=== PATIENT | female | born 1980 | race Caucasian/White ===

== ENCOUNTER 2017-02-03 18:34 | Emergency (ER) | payer MEDICAID ==
[2017-02-03 18:44] VITALS: BP 128/79
[2017-02-03] MEDS ORDERED: Acetaminophen/HYDROcodone 325-5 MG Tab PO ONE ×2 (19:19→19:20)
--- NOTE | 2017-02-03 19:28 | EDM.PDOC ---
ED HPI ENT - General Chief Complaint: ENT Problem Stated Complaint: tooth ache Time Seen by Provider: 02/03/17 19:05 Source of Information: Reports: Patient History Limitations: Reports: No limitations - History of Present Illness INITIAL COMMENTS - FREE TEXT/NARRATIVE: The patient presents with dental pain of right 1st maxillary bicuspid that has been ongoing for the past several day and increased significantly today. She reports she tried to go to the dentist today but they were closed. She states she has had caries of that tooth and others for some time that she knows need to be addressed. She denies other symptoms or complaints. - Related Data Allergies/ADRs: Allergies Allergy/AdvReac Type Severity Reaction Status Date / Time No Known Allergies Allergy Verified 02/03/17 18:44 Home Meds: Home Meds Ibuprofen [Advil] 600 mg PO Q6H PRN 02/03/17 [History] Non-Formulary Medication [NF Drug] 1 tab PO BEDTIME 02/03/17 [History] traZODone 50 mg PO BEDTIME 02/03/17 [History] Past Medical History Neurological History: Reports: Other (see below) Other Neuro History: restless leg syndrome Psychiatric History: Reports: Other (see below) Other Psychiatric History: Insomnia - Past Surgical History HEENT Surgical History: Reports: Oral surgery GI Surgical History: Reports: Appendectomy Female Surgical History: Reports: Cervical cryotherapy Social & Family History - Tobacco Use Smoking Status *Q: Current Every Day Smoker Years of Tobacco use: 25 Packs/Tins Daily: 1 ED ROS ENT - Review of Systems Review Of Systems: ROS reveals no pertinent complaints other than HPI. ED EXAM, ENT - Physical Exam Exam: See Below Exam Limited By: No limitations General Appearance: alert, WD/WN, no apparent distress Eye Exam: bilateral eye: EOMI, normal inspection, PERRL Ears: normal external exam, normal canal, hearing grossly normal, normal TMs Nose: normal inspection, normal mucousa, no blood Mouth/Throat: Normal gums, Normal lips, Normal oropharynx, Other (Multiple dental caries and fillings. Severe Dental Caries of Right 1st Maxillary Bicuspid with Significant Erosion of Tooth with pain on percussion and no erythema, calor, or fluctuance on palaption of adjacent gums or cheek.) Head: atraumatic, normocephalic Neck: normal inspection, supple, non-tender, full range of motion, tender midline, other (No nuchal rigidity.). No: lymphadenopathy (L), lymphadenopathy (R), tender lateral Respiratory/Chest: no respiratory distress, lungs clear, normal breath sounds, no accessory muscle use, chest non-tender Cardiovascular: normal peripheral pulses, regular rate, rhythm, no edema, no gallop, no murmur, no rub GI/Abdominal: normal bowel sounds, soft, non tender, no organomegaly, no distention, no abnormal bruit Back: normal inspection, full range of motion. No: CVA tenderness (L), CVA tenderness (R), paraspinal tenderness, vertebral tenderness Extremities: normal inspection, normal range of motion, non-tender, no pedal edema, normal capillary refill Neurological: alert, oriented, CN II-XII intact, normal cognition, normal gait, normal reflexes, no motor/sensory deficits Psychiatric: normal affect, normal mood Skin: Warm, Dry, Intact, Normal color, No rash Lymphatic: no adenopathy Course - Vital Signs Last Recorded V/S: Last Vital Signs Temp 37.0 C 02/03/17 18:36 Pulse 75 02/03/17 18:36 Resp 18 02/03/17 18:36 BP 128/79 02/03/17 18:36 Pulse Ox 100 02/03/17 18:36 - Orders/Labs/Meds Meds: Medications Discontinued Medications Generic Name Dose Route Start Last Admin Trade Name Dan[place] PRN Reason Stop Dose Admin Hydrocodone Bitart/Acetaminophen 1 tab 02/03/17 19:19 02/03/17 19:28 [place] 325-5 Mg PO 02/03/17 19:20 1 tab ONETIME ONE Administration Hydrocodone Bitart/Acetaminophen 1 tab 02/03/17 19:20 02/03/17 19:29 [place] 325-5 Mg PO 02/03/17 19:21 Not Given ONETIME ONE Departure - Departure Time of Disposition: 19:22 Disposition: Home, Self-Care 01 Clinical Impression: Dental abscess, Dental caries Instructions: Dental Abscess, [id number] Referrals: Consuelo Chester MD [Primary Care Provider] - Forms: ED Department Discharge Additional Instructions: 1. Prescription for Augmentin 875/125 mg tabs, 1 tab PO BID, 3 day take home supply and prescription for 7 day supply to be filled at pharmacy. 2. OTC ibuprofen 400-800 mg every 6 hours as needed for mild pain. 3. Given [place] 5/325 mg tab, 1 tab PO in ER and given 1 tab PO PRN moderate to moderately severe pain beginning at 02:00 on 02/04/17. 4. Prescription for [place] 5/325 mg tabs, 1 tab PO every 6 hours as needed for pain, 8 tabs, 0 refills. 5. Instructed to followup with dentist LILI for definitive care. 6. Return to ER with fever > 101 F not responsive to acetaminophen or ibuprofen , mental status changes, or other emergent concerns. - Assessment/Plan Assessment:: Dental Caries and Abscess R 1st maxillary bicuspid. Plan: 1. Prescription for Augmentin 875/125 mg tabs, 1 tab PO BID, 3 day take home supply and prescription for 7 day supply to be filled at pharmacy. 2. OTC ibuprofen 400-800 mg every 6 hours as needed for mild pain. 3. Given [place] 5/325 mg tab, 1 tab PO in ER and given 1 tab PO PRN moderate to moderately severe pain beginning at 02:00 on 02/04/17. 4. Prescription for [place] 5/325 mg tabs, 1 tab PO every 6 hours as needed for pain, 8 tabs, 0 refills. 5. Instructed to followup with dentist LILI for definitive care. 6. Return to ER with fever > 101 F not responsive to acetaminophen or ibuprofen , mental status changes, or other emergent concerns.
== END 2017-02-03 19:35 | disposition home or self-care (01) ==
LOC: LL.ED 18:34
DX: K04.7 Periapical abscess without sinus (principal); K02.9 Dental caries, unspecified; F17.210 Nicotine dependence, cigarettes, uncomplicated; Z79.899 Other long term (current) drug therapy; Z90.49 Acquired absence of other specified parts of digestive tract
CPT/HCPCS: 99283; A9270

== ENCOUNTER 2018-01-15 16:08 | Emergency (ER) | payer MEDICAID ==
[2018-01-15 16:15] VITALS: BP 152/99
--- NOTE | 2018-01-15 17:02 | EDM.PDOC ---
ED HPI GENERAL MEDICAL PROBLEM - General Chief Complaint: General Stated Complaint: left lower mouth pain Time Seen by Provider: 01/15/18 16:45 Source of Information: Reports: Patient History Limitations: Reports: No Limitations - History of Present Illness INITIAL COMMENTS - FREE TEXT/NARRATIVE: Patient is a 37-year-old seen in the ER with left lower jaw pain secondary to possible abscessed tooth patient states this started on Monday and at that time the dentist wouldn't see her she was so she started on antibiotics so she waited till today to be seen Onset: Gradual Duration: Day(s):, Getting Worse Location: Reports: Face Quality: Reports: Ache, Throbbing Severity: Moderate Improves with: Reports: Other (JANETT Cabello) Worsens with: Reports: Cold Therapy Context: Reports: Other (Fracture to) Treatments CLINIC MGR: Reports: Other (see below) Other Treatments CLINIC MGR: ibuprofen and warm packs tooth Pain Score (Numeric/FACES): 8 - Related Data Allergies Allergy/AdvReac Type Severity Reaction Status Date / Time No Known Allergies Allergy Verified 02/03/17 18:44 Home Meds: Home Meds Ibuprofen [Advil] 600 mg PO Q6H PRN 02/03/17 [History] traZODone 50 mg PO BEDTIME PRN 02/03/17 [History] Amoxicillin/Potassium Clav [Augmentin 875-125 Tablet] 1 each PO BID 10 Days #20 tablet 01/15/18 [Rx] Gabapentin [Neurontin] 100 mg PO BEDTIME 01/15/18 [History] Ibuprofen [Motrin] 800 mg PO BIDM PRN 7 Days #30 tab 01/15/18 [Rx] metFORMIN [Glucophage XR] 500 mg PO DAILY 01/15/18 [History] Past Medical History Other HEENT History: current issue is left lower gum pain Neurological History: Reports: Other (See Below) Other Neuro History: restless leg syndrome Psychiatric History: Reports: Other (See Below) Other Psychiatric History: Insomnia - Past Surgical History HEENT Surgical History: Reports: Oral Surgery GI Surgical History: Reports: Appendectomy Female Surgical History: Reports: Cervical Cryotherapy Social & Family History - Tobacco Use Smoking Status *Q: Current Every Day Smoker Years of Tobacco use: 25 Packs/Tins Daily: 1 ED ROS GENERAL - Review of Systems Review Of Systems: ROS reveals no pertinent complaints other than HPI. Constitutional: Reports: No Symptoms HEENT: Reports: No Symptoms Respiratory: Reports: No Symptoms Cardiovascular: Reports: No Symptoms Endocrine: Reports: No Symptoms GI/Abdominal: Reports: No Symptoms : Reports: No Symptoms Musculoskeletal: Reports: No Symptoms Skin: Reports: No Symptoms Neurological: Reports: No Symptoms Psychiatric: Reports: No Symptoms Hematologic/Lymphatic: Reports: No Symptoms Immunologic: Reports: No Symptoms ED EXAM, GENERAL - Physical Exam Exam: See Below Exam Limited By: No Limitations General Appearance: Alert, WD/WN, No Apparent Distress Eye Exam: Bilateral Eye: EOMI, PERRL Ears: Normal External Exam, Normal Canal, Hearing Grossly Normal, Normal TMs Ear Exam: Bilateral Ear: Auricle Normal, Canal Normal, TM normal Nose: Normal Inspection, Normal Mucosa, No Blood Throat/Mouth: Other (Fractured left lower second molar) Head: Atraumatic, Normocephalic Neck: Normal Inspection, Supple, Non-Tender, Full Range of Motion Respiratory/Chest: No Respiratory Distress, Lungs Clear, Normal Breath Sounds, No Accessory Muscle Use, Chest Non-Tender Cardiovascular: Normal Peripheral Pulses, Regular Rate, Rhythm, No Edema, No Gallop, No JVD, No Murmur, No Rub GI/Abdominal: Normal Bowel Sounds, Soft, Non-Tender, No Organomegaly, No Distention, No Abnormal Bruit, No Mass Back Exam: Normal Inspection, Full Range of Motion, NT Extremities: Normal Inspection, Normal Range of Motion, Non-Tender, Normal Capillary Refill, No Pedal Edema Neurological: Alert, Oriented, CN II-XII Intact, Normal Cognition, Normal Gait, Normal Reflexes, No Motor/Sensory Deficits Psychiatric: Normal Affect, Normal Mood Lymphatic: No Adenopathy Course - Vital Signs Last Recorded V/S: Last Vital Signs Temp 99.0 F 01/15/18 16:14 Pulse 79 01/15/18 16:14 Resp 14 01/15/18 16:14 BP 152/99 H 01/15/18 16:14 Pulse Ox 100 01/15/18 16:14 Departure - Departure Time of Disposition: 17:01 Disposition: Home, Self-Care 01 Condition: Fair Clinical Impression: Dental caries - Discharge Information Prescriptions: Amoxicillin/Potassium Clav [Augmentin 875-125 Tablet] 1 each PO BID 10 Days #20 tablet Ibuprofen [Motrin] 800 mg PO BIDM PRN 7 Days #30 tab PRN Reason: Pain Referrals: PCP,Unknown [Primary Care Provider] - Care Plan Goals: Patient sent home on Augmentin 875 twice a day for 10 days plus Motrin 806 hours for 7 days she is to see the dentist as soon as possible
== END 2018-01-15 17:10 | disposition home or self-care (01) ==
LOC: LL.ED 16:08
DX: K02.9 Dental caries, unspecified (principal); F17.210 Nicotine dependence, cigarettes, uncomplicated; Z79.899 Other long term (current) drug therapy; Z79.84 Long term (current) use of oral hypoglycemic drugs
CPT/HCPCS: 99282